=== PATIENT | female | born 1975 | race Caucasian/White ===

== ENCOUNTER 2020-04-06 09:00 | Outpatient (CLI) | payer SELFPAY ==
--- NOTE | ~2020-04-06 | MM_ITS ---
EXAMINATION: MM screening deisy BI w niki HISTORY: Screening mammogram TECHNIQUE: Craniocaudal and mediolateral oblique 3-D tomosynthesis images were obtained and synthetic 2-D images were generated. CAD analysis was submitted and interpreted. COMPARISON: No prior mammogram is available for comparison at this institution. BREAST PARENCHYMAL COMPOSITION: The breasts are heterogeneously dense, which may obscure small masses . FINDINGS: There is no evidence of suspicious mass, calcification, or architectural distortion to sugg est malignancy in either breast. There has been no suspicious interval change. IMPRESSION: 1. No mammographic evidence of malignancy. 2. Recommend routine screening mammography in one year. BI-RADS Category 1: Negative Reviewed, dictated and finalized at location A.
== END 2020-04-06 09:01 | disposition home or self-care (01) ==
PROVIDERS: PCP Obstetrics & Gynecology; Visit Provider Obstetrics & Gynecology
DX: Z12.31 Encounter for screening mammogram for malignant neoplasm of breast (principal)
CPT/HCPCS: 77063; 77067

== ENCOUNTER 2020-09-18 18:59 | Inpatient (IN) | payer SELFPAY ==
--- NOTE | ~2020-09-18 | US_ITS ---
EXAMINATION: US venous doppler UE RT DATE: 09/20/2020 11:40 INDICATION: Right upper limb swelling and erythema TECHNIQUE: Grayscale images without and with compression and Doppler images of the right upper extrem ity veins were obtained. COMPARISON: None. FINDINGS: The right internal jugular vein, subclavian vein, axillary vein, brachial vein, basilic vein, cephali c vein, radial vein, and ulnar vein are patent. IMPRESSION: 1. Patent right upper extremity veins. No evidence of venous thrombosis. Reviewed, dictated and finalized at location B.
[2020-09-18 19:00] VITALS: BP 123/54; PULSE 114; RESP 18; TEMP 36.6; O2SAT 100
--- NOTE | 2020-09-18 19:14 | ED.GENADULT ---
HPI - General Adult General Chief complaint: Extremity Injury, Upper Stated complaint: swollen hand Time Seen by Provider: 09/18/20 19:12 Source: patient Mode of arrival: ambulatory Limitations: no limitations History of Present Illness HPI narrative: 44 years old white female who woke up yesterday morning with swelling, redness and pain of the right forearm. Urgent care at 9 AM, discharged on Keflex. Today patient feeling more pain and more swelling, also vomited once after taking the first tablet of flex yesterday. Patient reports intermittent fever. Patient denies similar symptoms, or chills. Patient is nondiabetic, history of hypertension and hypothyroidism. 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 Patient does not smoke or drink or uses drugs. Related Data Home Medications Medication Instructions Recorded Confirmed norgestimate-ethinyl estradiol 1 tablet PO DAILY 12/14/19 09/18/20 0.18 mg/0.215mg/0.25mg-35 mcg(28)tablet Allergies Allergy/AdvReac Type Severity Reaction Status Date / Time No Known Allergies Allergy Verified 09/18/20 19:22 Review of Systems Review of Systems: Narrative: CONSTITUTIONAL: Denies fever, chills, or sweats. EYES: Denies visual changes, redness, or discharge. ENT: Denies rhinorrhea, congestion, sore throat, or otalgia. CARDIOVASCULAR: Denies chest pain, palpitations, or edema. RESPIRATORY: Denies cough or dyspnea. GASTROINTESTINAL: Denies abdominal pain, nausea, vomiting, or diarrhea. GENITOURINARY: Denies dysuria or hematuria. SKIN: Denies rash or itching. MUSCULOSKELETAL: Denies back pain, joint pain, or myalgia. NEUROLOGIC: Denies headache, numbness, or weakness. PSYCHIATRIC: Denies anxiety or depression. [facility] Past Medical History Medical History (Updated 09/18/20 @ 21:32 by Chu Wilkins MD) HTN (hypertension) with goal to be determined Hypothyroidism Family History Family History Mother Family history of thyroid disease Family history of malignant neoplasm of thyroid Grandparent Family history of thyroid disease Diabetes mellitus Family history of mental disorder Family history of lung disease Social History Social History Smoking status: Never smoker Alcohol intake: current Gender identity (if verbalized by the patient): Female Exam Narrative: Exam Narrative: General appearance: Well-developed, well-nourished Skin: Right forearm and hand showed diffuse swelling, erythema, warmth, tenderness anteriorly. Head: Normocephalic, nontraumatic Eyes: Clear conjunctiva Chest and respiratory: Airway patent, no respiratory distress, no accessory muscle use Heart: Regular rate/rhythm Vascular: Normal peripheral pulses, normal capillary refill. Musculoskeletal: Normal range of motion, nontender back Neurologic: Alert and oriented ?3, [facility] is normal as tested, no gross motor deficit Course Course Emergency Course: Stable Vital Signs Vital signs: Vital Signs Temperature 36.6 C 09/18/20 19:00 Pulse Rate 114 H 09/18/20 19:00 Respiratory Rate 18 09/18/20 19:00 Blood Pressure 123/54 L 09/18/20 19:00 Pulse Oximetry 100 09/18/20 19:00 Temperature 36.6 C 09/18/20 19:00 Pulse Rate 101 H 09/18/20 20:11 Respiratory Rate 19 09/18/20 20:11 Blood Pressure 131/74 09/18/20 20:11 Pulse Oximetry 99 09/18/20 20:11 Medical Decision Making MDM Narrative Medical decision making narrative: Patient presents with what looks like cellulitis of the right forearm. Patient is not diabetic. Labs, blood culture, I
[2020-09-18 19:46] LABS: Basophils Absolute Auto 0.1 K/mm3 (0.0-0.1); Basophils Percent Auto 0.2 % (0.2-1.2); Eosinophils Absolute Auto 0.1 K/mm3 (0-0.3); Eosinophils Percent Auto 0.3 % (0-4.4); Hematocrit 35.8 % (37.0-47.0); Hemoglobin 12.2 g/dL (12.0-15.0); Immature Granulocyte Absolute 0.21 K/mm3 (0.00-0.031); Immature Granulocyte Percent A 0.9 % (0-0.5); Lymphocytes Absolute Auto 1.56 K/mm3 (0.9-3.2); Lymphocytes Percent Auto 6.9 % (18.3-44.2); Mean Corpuscular HGB Conc 34.1 g/dl (32-36); Mean Corpuscular Hemoglobin 30.4 pg (26-34); Mean Corpuscular Volume 89.3 fl (80-100); Mean Platelet Volume 10.9 fl (7.4-10.4); Monocytes Absolute Auto 1.5 K/mm3 (0.1-0.6); Monocytes Percent Auto 6.6 % (2.6-8.5); Neutrophils Absolute Auto 19.2 K/mm3 (1.3-6.7); Neutrophils Percent Auto 85.1 % (45.5-73.1); Platelet Count Result 225 k/mm3 (150-375); Red Blood Count 4.01 M/mm3 (4.2-5.4); Red Cell Distribution Width 12.9 % (11.5-14.5); White Blood Count 22.6 K/mm3 (4.5-10.0)
[2020-09-18 19:57] LABS: Lactic Acid Reflex 1.2 mmol/L (0.7-2.1)
[2020-09-18 19:59] LABS: Alanine Aminotransferase 34 U/L (4-35); Albumin Level 3.6 g/dL (3.5-5.1); Alkaline Phosphatase 173 U/L (38-126); Anion Gap 8 mmol/L (8-16); Aspartate Amino Transferase 36 U/L (14-36); Bilirubin,Total 0.3 mg/dL (0.2-1.3); Blood Urea Nitrogen 19 mg/dL (7-17); Carbon Dioxide 23 mmol/L (22-30); Chloride 106 mmol/L (98-107); Estimated Glomerular Filt Rate > 60; Glucose 223 mg/dL (65-105); Potassium 3.8 mmol/L (3.4-5.0); Sodium 137 mmol/L (137-145)
[2020-09-18 20:11] VITALS: BP 131/74; PULSE 101; RESP 19; O2SAT 99
--- NOTE | 2020-09-18 21:24 | PM.IMHP ---
H&P: HPI History of Present Illness Date/Time: 09/18/20 21:24 Chief complaint: rt forearm cellulitis, new DM Narrative: This is a pleasant 44 year old female with known HTN and hypothyroidism who presented to the hospital with a complaint of right hand and forearm redness for the past 2 days. The patient reports that she got a small cut on her right middle finger and that is where the infection started as her middle finger is more swollen than the other fingers. She can barely close her right hand. She was seen yesterday at Urgent care for this and was prescribed Keflex. She experienced nausea and vomited after her first dose of Keflex although she states she has been taking the medication as prescribed. She woke up today with worse redness, swelling, and pain. She decided to come to the hospital for evaluation. She denies any fevers, chills, cough, chest pain, shortness of breath, abdominal pain, left upper extremity trauma, dysuria, diarrhea, or other wounds or rashes. The patient was found to be septic in the ER with tachycardia and leukocytosis. She was treated with IV vancomycin and we have been asked to admit her for further care. She is not known to be diabetic. 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 Hypothyroidism Family History Family History Mother Family history of thyroid disease Family history of malignant neoplasm of thyroid Grandparent Family history of thyroid disease Diabetes mellitus Family history of mental disorder Family history of lung disease Social History Social History Smoking status: Never smoker Alcohol intake: never Substance use: never Gender identity (if verbalized by the patient): Female Spiritual care concerns: No Comments Surgical history is remarkable for correction of Coarctation of aorta Meds Home Medications and Allergies Home Medications Medication Instructions Recorded Confirmed Type norgestimate-ethinyl estradiol 1 tablet PO DAILY 12/14/19 09/18/20 History 0.18 mg/0.215mg/0.25mg-35 mcg(28)tablet levothyroxine 137 mcg tablet 137 mcg PO DAILY #90 tablet 12/18/19 09/18/20 Rx lisinopril 20 mg tablet 20 mg PO BID #180 tablet 12/18/19 09/18/20 Rx verapamil 240 mg tablet,extended 120 mg PO DAILY #90 tablet 12/18/19 09/18/20 Rx release Allergies Allergy/AdvReac Type Severity Reaction Status Date / Time No Known Allergies Allergy Verified 09/18/20 19:22 Vital Signs Vital Signs - 24 hr 09/18/20 19:00 09/18/20 20:11 Temperature 36.6 C Pulse Rate 114 H 101 H Respiratory Rate 18 19 Blood Pressure 123/54 L 131/74 Pulse Oximetry 100 99 Exam Const: General: cooperative, alert and awake Nutritional Appearance: overweight Orientation/consciousness: patient oriented x3 HENMT: Head: normal to inspection General nose exam: Normal external nose present Face and sinus: normal facial exam Mouth: Yes Normal oral and palatal mucosa present and Yes oropharynx normal Eyes: Pupils: Equal, round and reactive pupils present EOM: EOMs intact bilaterally Neck: Neck: supple and no JVD Thyroid: thyroid normal Lymphatic: lymphadenopathy not noted Resp: Effort & Inspection: normal respiratory effort Auscultation: clear to auscultation bilaterally Cardio: Rate: tachycardic Rhythm: regular rhythm Heart sounds: no murmurs GI: Inspection: normal to inspection Auscultation: normal bowel sounds Skin: General skin exam: normal color and erythema (ventral aspect of right forarm and right hand++ ) Neuro: General: patient oriented x3 Cranial nerves:
[2020-09-18 22:16] LABS: Hemoglobin A1C 5.1 % (<5.7)
[2020-09-18 22:26] VITALS: BP 124/89; PULSE 108; RESP 18; O2SAT 99
[2020-09-18 22:35] VITALS: BMI 30.9
[2020-09-18] MEDS: SODIUM CHLORIDE 0.9% IV 1,000 ML 125 ML IV CONT (23:11)
[2020-09-18 23:23] VITALS: BP 146/74; PULSE 97; RESP 21; TEMP 36.2; O2SAT 100
--- NOTE | 2020-09-19 02:52 | ADMGEN ---
This patient, Lainey Lopez, was admitted to 2 Medical Room 257-01. Patient/family oriented to hospital policies and general routines including ID bracelet, bed and alarms, visiting hours, pain management, procedures, bathroom and other care routines, personal items, smoking policy, room service/diet, and visiting hours. Information on how to activate the Rapid Response Team has been discussed. Patient/Family are encouraged to report perceived risks to care and to ask questions if they do not understand what they are told or what they should do.
[2020-09-19 05:41] LABS: Basophils Percent Auto 0.2 % (0.2-1.2); Eosinophils Absolute Auto 0.1 K/mm3 (0-0.3); Eosinophils Percent Auto 0.3 % (0-4.4); Hematocrit 32.5 % (37.0-47.0); Hemoglobin 11.3 g/dL (12.0-15.0); Immature Granulocyte Absolute 0.21 K/mm3 (0.00-0.031); Immature Granulocyte Percent A 1.2 % (0-0.5); Lymphocytes Absolute Auto 0.93 K/mm3 (0.9-3.2); Lymphocytes Percent Auto 5.2 % (18.3-44.2); Mean Corpuscular HGB Conc 34.8 g/dl (32-36); Mean Corpuscular Hemoglobin 30.5 pg (26-34); Mean Corpuscular Volume 87.8 fl (80-100); Monocytes Absolute Auto 1.3 K/mm3 (0.1-0.6); Monocytes Percent Auto 7.4 % (2.6-8.5); Neutrophils Absolute Auto 15.2 K/mm3 (1.3-6.7); Neutrophils Percent Auto 85.7 % (45.5-73.1); Platelet Count Result 211 k/mm3 (150-375); White Blood Count 17.8 K/mm3 (4.5-10.0)
[2020-09-19 06:00] VITALS: BP 120/62; PULSE 95; RESP 21; TEMP 36.9; O2SAT 100
[2020-09-19 06:00] LABS: Anion Gap 7 mmol/L (8-16); Blood Urea Nitrogen 14 mg/dL (7-17); Calcium 10.6 mg/dL (8.4-10.2); Carbon Dioxide 22 mmol/L (22-30); Chloride 110 mmol/L (98-107); Estimated Glomerular Filt Rate > 60; Glucose 140 mg/dL (65-105); Potassium 3.8 mmol/L (3.4-5.0); Sodium 139 mmol/L (137-145)
[2020-09-19] MEDS: LEVOTHYROXINE SODIUM 112 MCG TABLET PO (06:39)
[2020-09-19] MEDS: LEVOTHYROXINE SODIUM 25 MCG TABLET PO (06:39)
[2020-09-19 07:44] LABS: Glucose Point of Care 127 (65-105)
[2020-09-19] MEDS: lisinopriL 20 MG TABLET PO ×2 (09:09→16:48)
[2020-09-19] MEDS: VERAPAMIL HCL ER 120 MG TABLET PO (09:09)
[2020-09-19 11:31] LABS: Glucose Point of Care 148 (65-105)
--- NOTE | 2020-09-19 13:15 | PM.IMPN ---
Progress Note: A&P Assessment and Plan (1) Sepsis: Code(s): A41.9 - Sepsis, unspecified organism Status: Acute Assessment and Plan: With tachycardia and leukocytosis. The source is cellulitis of the right upper extremity. She is afebrile. Blood cultures were obtained and are pending. She received adequate fluid resuscitation and is tolerating PO intake well. Continue to monitor vitals and urine output. Continue IV antibiotics. Await blood cultures. (2) Cellulitis of forearm, right: Code(s): L03.113 - Cellulitis of right upper limb Status: Acute Assessment and Plan: Improving. Leukocytosis is improving. Swelling and erythema have also improved. Continue IV vancomycin. Continue to monitor. Blood cultures were obtained and are pending. Consider additional imaging of the right hand if swelling does not improve. (3) Abnormal glucose: Code(s): R73.09 - Other abnormal glucose Status: Acute Assessment and Plan: Random blood sugar 09/18 was 223. Hemoglobin A1c was ordered and is 5.1%. (4) Hypothyroidism: Qualifiers: Hypothyroidism type: acquired Qualified Code(s): E03.9 - Hypothyroidism, unspecified Code(s): E03.9 - Hypothyroidism, unspecified Status: Chronic Assessment and Plan: Continue levothyroxine. Will check TSH w/reflex for tomorrow. (5) Essential hypertension: Code(s): I10 - Essential (primary) hypertension Status: Chronic Assessment and Plan: Blood pressures are well-controlled. Most recent BP was 116/64. Continue lisinopril and verapamil. Continue to monitor and adjust treatment as indicated. Subjective Date/time seen: 09/19/20 13:15 Mrs. Lopez is a 44 y.o. female with PMH significant for hypertension and hypothyroidism who is seen in follow-up for cellulitis of the LUE. She is feeling much better today. The swelling and erythema are improving. She reports that she could barely flex her fingers yesterday and can now make a fist. Her appetite is good. She notes that she had fevers on Saturday but has been afebrile since then. She denies headaches, dizziness, and lightheadedness. She hopes to go home soon although I explained that I still recommend IV antibiotics at this time. Her bowels are regular and she is not having any diarrhea. She has no voiding concerns. Review of Systems Review of Systems: All systems reviewed & are unremarkable except as noted in HPI and below Exam Narrative: Exam Narrative: General: Pleasant, well-developed, and well-nourished 44 y.o. female ambulating in the room in no acute distress. HEENT: Normocephalic and atraumatic. Sclerae anicteric. Conjunctivae without injection or exudate. EOMI. Corrective lenses in place. Oral mucosa moist. Neck: Supple. Cardiac: Regular rate and rhythm. S1 and S2 normal. Lungs:Lungs are clear to auscultation bilaterally. Abdomen: Bowel sounds are normoactive. Abdomen is soft, non-distended, and non-tender. Extremities: No lower extremity edema. No calf tenderness. DP and PT 2+ bilaterally. Right 3rd digit edema extending proximally from the DIP. Minimal edema to the rest of the hand. Pt is able to make a fist with minimal difficulty. Neurological: Alert. Exam non-focal to casual conversation. Speech is clear. Skin: Erythema present at the ventral RUE which extends from the right hand to just below the elbow. Area with calor to touch. No open wounds appreciated. No areas of fluctuance appreciated. Psychiatric: Judgment and insight intact. Pleasant mood and appropriate affect. Objective Data Vital Signs Vital Signs: Vital Signs - 24 hr 09/18/20 19:00 09/18/20 20:11 09/18/20 22:26 Temperature 97.9 F Pulse Rate 114 H 101 H 108 H Respiratory Rate 18 19 18 Blood Pressure 123/54 L 131/74 124/89 Pulse Oximetry 100 99 99 09/18/20 23:23 09/19/20 06:00 Temperature 97.2 F L 98.4 F Pulse Rate 97 95 Respiratory Rate 21 H
[2020-09-19 14:00] VITALS: BP 116/64; PULSE 95; RESP 16; TEMP 36.8; O2SAT 100
--- NOTE | 2020-09-19 14:43 | PHAR ---
Norgestimate-Ethinyl Estradiol [Tri-Sprintec (28)]- Home med seen in pharmacy and returned to [address] [place] [id number]
[2020-09-19 16:53] LABS: Glucose Point of Care 141 (65-105)
[2020-09-19 20:00] VITALS: PULSE 95; RESP 16; O2SAT 100
[2020-09-19 22:00] VITALS: BP 121/44; PULSE 83; RESP 20; TEMP 37.1; O2SAT 99
[2020-09-20 06:00] VITALS: BP 131/50; PULSE 88; RESP 21; TEMP 36.2; O2SAT 100
[2020-09-20] MEDS: LEVOTHYROXINE SODIUM 25 MCG TABLET PO (06:21)
[2020-09-20] MEDS: LEVOTHYROXINE SODIUM 112 MCG TABLET PO (06:21)
[2020-09-20 06:29] LABS: Basophils Percent Auto 0.3 % (0.2-1.2); Eosinophils Absolute Auto 0.3 K/mm3 (0-0.3); Eosinophils Percent Auto 2.3 % (0-4.4); Hematocrit 32.9 % (37.0-47.0); Hemoglobin 11.2 g/dL (12.0-15.0); Immature Granulocyte Absolute 0.12 K/mm3 (0.00-0.031); Immature Granulocyte Percent A 0.9 % (0-0.5); Lymphocytes Absolute Auto 1.58 K/mm3 (0.9-3.2); Lymphocytes Percent Auto 11.6 % (18.3-44.2); Mean Corpuscular Hemoglobin 30.1 pg (26-34); Mean Corpuscular Volume 88.4 fl (80-100); Mean Platelet Volume 10.8 fl (7.4-10.4); Monocytes Absolute Auto 1.1 K/mm3 (0.1-0.6); Monocytes Percent Auto 7.8 % (2.6-8.5); Neutrophils Absolute Auto 10.5 K/mm3 (1.3-6.7); Neutrophils Percent Auto 77.1 % (45.5-73.1); Platelet Count Result 211 k/mm3 (150-375); Red Blood Count 3.72 M/mm3 (4.2-5.4); White Blood Count 13.6 K/mm3 (4.5-10.0)
[2020-09-20 06:47] LABS: Alanine Aminotransferase 61 U/L (4-35); Albumin Level 2.9 g/dL (3.5-5.1); Alkaline Phosphatase 217 U/L (38-126); Anion Gap 4 mmol/L (8-16); Aspartate Amino Transferase 61 U/L (14-36); Bilirubin,Total 0.3 mg/dL (0.2-1.3); Blood Urea Nitrogen 14 mg/dL (7-17); Calcium 10.1 mg/dL (8.4-10.2); Carbon Dioxide 26 mmol/L (22-30); Chloride 106 mmol/L (98-107); Estimated Glomerular Filt Rate > 60; Glucose 131 mg/dL (65-105); Potassium 3.7 mmol/L (3.4-5.0); Sodium 136 mmol/L (137-145)
[2020-09-20] MEDS: VERAPAMIL HCL ER 120 MG TABLET PO (08:27)
[2020-09-20] MEDS: lisinopriL 20 MG TABLET PO (08:27)
[2020-09-20 08:31] LABS: CRP 16.5 mg/dL (<1.0)
[2020-09-20 14:00] VITALS: BP 125/64; PULSE 95; RESP 16; TEMP 36.7; O2SAT 100
--- NOTE | 2020-09-20 14:55 | PM.DS ---
DS: Admitting Diagnosis Admitting Diagnosis Admitting Diagnosis: rt forearm cellulitis, new DM DS: Discharge Diagnosis Discharge Diagnosis (1) Sepsis: Code(s): A41.9 - Sepsis, unspecified organism Status: Acute Assessment and Plan: Tachycardia resolved , HR regular and rate 80s. Leukocytosis is improving. 22.6 to 13.6. The source is cellulitis of the right upper extremity. She is afebrile. Blood cultures x 2 show no growth. received adequate fluid resuscitation and is now tolerating PO intake well. denies N/V/diarrhea or constipation. Treated with IV Vanc. Continue to monitor arm and fingers at home. Ordered CBC and CMP labs to be drawn as outpatient in 3 days after discharge per discharge instructions. (2) Cellulitis of forearm, right: Code(s): L03.113 - Cellulitis of right upper limb Status: Acute Assessment and Plan: Improving. Leukocytosis is improving. 22.6 to 13.6 Afebrile Swelling and erythema have also improved. Received 3 IV vancomycin doses, 1 in ER and 2 on floor. Instructed patient and her at bedside to continue to monitor at home. Blood cultures x 2 show no growth. US of RUE showed no DVT. She reports and demonstrated during examination, that she now has equal sensation and strength and flexion in all her fingers to that hand. Discharged on oral Doxycycline and oral Florastor. Follow up with PCP in 3-7 days. 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 ) PCP may return her to work sooner if improvement is quicker than expected. (3) Abnormal glucose: Code(s): R73.09 - Other abnormal glucose Status: Acute Assessment and Plan: Random blood sugar 09/18 was 223. Hemoglobin A1c was ordered and is 5.1%. Last 2 glucose levels were 140 and 131 (4) Hypothyroidism: Qualifiers: Hypothyroidism type: acquired Qualified Code(s): E03.9 - Hypothyroidism, unspecified Code(s): E03.9 - Hypothyroidism, unspecified Status: Chronic Assessment and Plan: Continue levothyroxine. (5) Essential hypertension: Code(s): I10 - Essential (primary) hypertension Status: Chronic Assessment and Plan: Blood pressures are well-controlled. Most recent BP was 131/50. Continue lisinopril and verapamil. Continue to monitor and adjust treatment as indicated. DS: Summary Time Spent with Patient Time attestation: Total time spent providing and/or coordinating discharge services:90 minutes Exam Narrative: Exam Narrative: General: Pleasant, well-developed, and well-nourished 44 y.o. female ambulating in the room in no acute distress. HEENT: Normocephalic and atraumatic. Sclerae anicteric. Conjunctivae without injection or exudate. EOMI. Corrective lenses in place. Oral mucosa moist. Neck: Supple. Cardiac: Regular rate and rhythm. S1 and S2 normal. Lungs:Lungs are clear to auscultation bilaterally. Abdomen: Bowel sounds are normoactive. Abdomen is soft, non-distended, and non-tender. Extremities: No lower extremity edema. No calf tenderness. Right 3rd digit edema extending proximally from the DIP. [place] and warm, redness resolved, extreme heat resolved. Minimal edema to the rest of the hand. Pt is able to make a fist with minimal difficulty. Some tightness remains. Not elevated. Neurological: Alert. Exam non-focal to casual conversation. Speech is clear. Skin: Erythema present at the ventral RUE which extends from the right hand to just below the elbow. Area with calor to touch. No open wounds appreciated. No areas of fluctuance appreciated. Psychiatric: Judgment and insight intact. Pleasant mood and appropriate affect. Const: General: cooperative, alert and awake Nutritional Appearance: overweight Orientation/consciousness: patient oriented x3 HENMT: Head: normal to inspection General nose exam: Normal external nose present Face and sinus: normal facial exam Mouth:
== END 2020-09-20 15:30 | disposition home or self-care (01) | DRG 720 ==
LOC: ANHED 21:28 → ANH2MED 09-19 07:17
PROVIDERS: Physician Assistant; Admitting Provider Family Medicine; Emergency Provider Emergency Medicine; Visit Provider Nurse Practitioner
DX: A41.9 Sepsis, unspecified organism (principal); L03.113 Cellulitis of right upper limb; R73.09 Other abnormal glucose; E03.9 Hypothyroidism, unspecified; I10 Essential (primary) hypertension; Z28.21 Immunization not carried out because of patient refusal; Z79.899 Other long term (current) drug therapy
CPT/HCPCS: 36415; 80048; 80053; 83036; 83605; 85025; 86140; 87040; 93971; 96365; 99285; A9270; J3370; J7030

== ENCOUNTER 2022-03-13 18:46 | Emergency (ER) | payer OTHER, SELFPAY ==
[2022-03-13 19:04] VITALS: BP 125/100; PULSE 78; RESP 16; TEMP 36.8; O2SAT 100
--- NOTE | 2022-03-13 19:21 | ED.LOWEXIN ---
HPI - Extremity Injury (Lower) General Chief Complaint: Extremity Injury, Lower Stated Complaint: R LEG PAIN Time Seen by Provider: 03/13/22 19:21 Source: patient Mode of arrival: ambulatory Limitations: no limitations History of Present Illness HPI Narrative: 46 y/o female presented for complaints of right upper inner thigh pain for 3 days. She states possible injury was lifting heavy tools at her job, endorses feeling tightness later that evening. States she was off of work for a couple days and the pain improved, but when she returned to work by the end of the shift she had more intense pain causing her to limp. Pain is also felt to inner thigh when seated. Denies numbness tingling or weakness, or pain radiating to foot.Taking ibuprofen prn. Related Data Home Medications Medication Instructions Recorded Confirmed norgestimate-ethinyl estradiol 1 tablet PO DAILY 12/14/19 06/16/21 0.18 mg/0.215mg/0.25mg-35 mcg(28)tablet Allergies Allergy/AdvReac Type Severity Reaction Status Date / Time No Known Allergies Allergy Verified 06/16/21 08:07 Review of Systems Review of Systems: CONSTITUTIONAL: Denies body aches, fever, chills EYES: Denies visual changes ENT: Denies rhinorrhea, congestion CARDIOVASCULAR: Denies chest pain, palpitations, or edema. RESPIRATORY: Denies cough or dyspnea. GASTROINTESTINAL: Denies abdominal pain, nausea, vomiting, or diarrhea. SKIN: Denies rash, itching, or wounds. MUSCULOSKELETAL: right inner thigh pain NEUROLOGIC: Denies headache, numbness, tingling, or weakness. PSYCH: Denies depression or anxiety. 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 Hypothyroidism Family History Family History Mother Family history of thyroid disease Family history of malignant neoplasm of thyroid Grandparent Family history of thyroid disease Diabetes mellitus Family history of mental disorder Family history of lung disease Social History Social History Smoking status: Never smoker Second hand tobacco smoke exposure: No Alcohol intake: never Substance use: never Gender identity (if verbalized by the patient): Female Spiritual care concerns: No Comments At time of signature, I have reviewed and agree with nursing past medical, surgical, social and family history unless otherwise noted. Please see nursing chart for further information. There is no relevant family history pertinent to the presenting complaint Exam Narrative: GENERAL: Well-appearing, well-nourished, and in no acute distress. HEAD: Normocephalic, atraumatic. EYES: PERRLA, conjunctivae clear NECK: Supple. CHEST: Speaks in full sentences. No respiratory distress. HEART: Regular rate and rhythm. Normal and equal peripheral pulses. EXTREMITIES: right inner thigh tender to palpation at iliofemoral junction, has normal strength and sensation, normal range of motion with flexion/extension/rotation, but endorses pain with movement. No edema or ecchymosis. No open wounds, skin tenting, or obvious deformity; alignment normal, pulse palpable and equal bilaterally, skin warm, dry, pink. Capillary refill less than 3 seconds. SKIN: Warm, dry, no rash. NEURO: Alert and oriented x3. PSYCH: Normal mood and affect Course Course Emergency Course: Patient is aware of diagnosis, understands and agrees to treatment plan. Anticipatory guidance given. Patient agrees to follow-up as directed and is aware of reasons to seek care at the emergency department. Portions of this record may have been created with voice recognition software Level of Care: [facility] Care Visit
== END 2022-03-13 19:41 | disposition home or self-care (01) ==
PROVIDERS: Emergency Provider Nurse Practitioner Family; PCP Internal Medicine
DX: M79.651 Pain in right thigh (principal); E03.9 Hypothyroidism, unspecified
CPT/HCPCS: 99213; G0463

== ENCOUNTER 2024-04-03 09:56 | Outpatient (CLI) | payer OTHER, SELFPAY ==
--- NOTE | ~2024-04-03 | CT_ITS ---
EXAMINATION: CTA chest DATE: 04/03/2024 10:32 INDICATION: Personal history of corrected coarctation of the aorta. Oseguera syndrome. TECHNIQUE: Computed tomographic angiography (CTA) of the chest was performed with 100 mL Omnipaque-35 0 intravenous contrast. Automated exposure control and iterative reconstruction technique were employ ed. The dose-length product was 335.35 mGy-cm. Maximum intensity projection 3D-reconstructions of the aorta and other arteries were constructed by the technologist on a separate workstation. COMPARISON: Thyroid ultrasound 11/22/2014 FINDINGS: The lungs demonstrate minimal atelectasis on the right. No pleural effusion. There are nodu les in the thyroid measuring up to 2.0 cm status post benign biopsy. The heart size is normal. No per icardial effusion. Aortic atherosclerosis is noted. The aorta is normal in caliber. 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 There is thoracic kyphosis. There is chronic anterior wedgi ng of multiple thoracic vertebral bodies. There is severe thoracic spondylosis. IMPRESSION: 1. Aortic atherosclerosis. No significant stenosis. Reviewed, dictated and finalized at location A.
[2024-04-03 10:15] LABS: Estimated Glomerular Filt Rate > 60
== END 2024-04-03 09:57 ==
PROVIDERS: PCP Family Medicine; Visit Provider Internal Medicine Cardiovascular Disease
DX: I70.0 Atherosclerosis of aorta (principal); Z87.74 Personal history of (corrected) congenital malformations of heart and circulatory system
CPT/HCPCS: 71275; Q9967

== ENCOUNTER 2024-08-28 14:02 | Outpatient (CLI) | payer SELFPAY ==
--- NOTE | ~2024-08-28 | US_ITS ---
EXAMINATION: US thyroid DATE: 08/28/2024 14:22 INDICATION: Multinodular goiter. TECHNIQUE: Multiple ultrasound images of the thyroid were obtained. COMPARISON: Ultrasound 11/22/2014 FINDINGS: The right thyroid lobe measures 4.2 x 2.3 x 1.9 cm. The left thyroid lobe measures 4.4 x 1.7 x 2.2 c m. In the right thyroid lobe, there is a 17 mm solid, hypoechoic, wider than tall nodule with ill-de fined margin and punctate echogenic focus (TI-RADS TR5), stable from 11/22/14. In the right thyroid l obe, there is a 2.1 cm mixed cystic and solid, hypoechoic, wider than tall nodule with ill-defined ma rgin without echogenic foci (TR3). In the left thyroid lobe, there is a 2.9 cm solid, hypoechoic, wid er than tall nodule with smooth margin and punctate echogenic foci (TR5), decreased in size from 10/26 08/08. IMPRESSION: 1. Multinodular goiter. Consider thyroid ultrasound in one year. Reviewed, dictated and finalized at location A.
== END 2024-08-28 14:03 | disposition home or self-care (01) ==
PROVIDERS: PCP Family Medicine; Visit Provider Internal Medicine
DX: E04.2 Nontoxic multinodular goiter (principal)
CPT/HCPCS: 76536

== ENCOUNTER 2025-01-15 12:49 | Outpatient (CLI) | payer OTHER, SELFPAY ==
--- NOTE | ~2025-01-15 | US_ITS ---
EXAMINATION: US FNA additional, US FNA w image guidance DATE: 01/15/2025 14:05 INDICATION: Right thyroid nodules TECHNIQUE: A time-out was performed to verify the patient's name, date of , and procedure to be performed . The procedure and its benefits and risks were discussed with the patient. Risks specifically discus sed included bleeding and infection. The patient understood the risks and agreed to proceed. The neck was prepped and draped in the usual sterile manner. 8 mL 1% lidocaine was used for local anesthesia . Attention was first turned to the more inferior right thyroid nodule. 7 passes were made with a 25 G needle into the lesion. Appropriate needle location was documented with continuous sonographic peng dance. Attention was then turned to the nodule in the mid right thyroid. 5 additional passes were mad e with a 20 5G needle into the lesion. Appropriate needle location was documented with continuous son ographic guidance. A sterile bandage was applied. There were no immediate complications. FINDINGS: Grayscale ultrasound images demonstrate biopsy needles advanced into the 1.7 cm TI-RADS 5 nodule at t he inferior right thyroid. Subsequent images demonstrate biopsy needles advanced into the solid hypoe choic component at the cephalad aspect of the previously noted 2.1 cm TI-RADS 3 mixed solid and cysti c nodule at the mid right thyroid. IMPRESSION: 1. Successful ultrasound-guided fine needle aspiration of a 1.7 cm TI-RADS 5 nodule at the inferior r ight thyroid. 2. Successful ultrasound-guided fine-needle aspiration of a 2.1 cm TI-RADS 3 mixed solid and cystic n odule at the mid right thyroid. Reviewed, dictated and finalized at location A. E SHOER IMPRESSION: 1. Successful ultrasound-guided fine needle aspiration of a 1.7 cm TI-RADS 5 no dule at the inferior right thyroid. 2. Successful ultrasound-guided fine-needle aspiration of a 2.1 cm TI-RADS 3 mi xed solid and cystic nodule at the mid right thyroid.
--- OUTSIDE RECORDS SUMMARY | 2025-01-15 12:57 | XMS_ITS | Clinical Summary ---
Author Organization [facility] Address [address] [place] [address] Phone Care Team Providers Care Barrel Assembler Name Role Phone Carole Rios Primary Care Provider [phone] Allergies No known active allergies Medications LISINOPRIL (PRINIVIL ORAL) Take by mouth. Active VERAPAMIL HCL (VERAPAMIL ORAL) Take by mouth. Active LEVOTHYROXINE SODIUM (SYNTHROID ORAL) Take by mouth. Active norgestimate-ethin yl estradiol (TRI-SPRINTEC, 28,) 0.18/0.215/0.25 mg-35 mcg (28) tabletIndications: Hormone replacement therapy,Encounter for surveillance of contraceptive pills Take 1 Tablet by mouth daily. 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 Family History Medical History Relation Name Comments Healthy Brother Healthy Father Thyroid Disease Maternal Grandmother Healthy Mother Relation Name Status Comments Brother Alive Father Alive Maternal Grandfather Maternal Grandmother Alive Mother Alive Paternal Grandfather Paternal Grandmother Social History Tobacco Use Types Packs/Day Years Used Date Smoking Tobacco: Never Smokeless Tobacco: Never Alcohol Use Standard Drinks/Week Comments No 0 (1 standard drink = 0.6 oz pur e alcohol) Comments No Sex and Gender Information Value Date Recorded Sex Assigned at Not on file Legal Sex Female 3:21 AM BEATER OUT Gender Identity Not on file Sexual Orientation Not on file Occupation Industry Job Start Date Job End Date Not on file Not on file Not on file Not on file Last Filed Vital Signs Vital Sign Reading Time Taken Comments Blood Pressure 130/50 10/05/2016 1:37 PM BEATER OUT Pulse 96 09/02/2015 1:35 PM CDT Temperature - - Respiratory Rate - - Oxygen Saturation - - Inhaled Oxygen Concentration - - Weight 53.1 kg (117 lb) 10/05/2016 1:37 PM BEATER OUT Height 138.4 cm (4' 6.5 ) 10/05/2016 1:37 PM BEATER OUT Body Mass Index 27.69 10/05/2016 1:37 PM BEATER OUT Plan of Treatment Health Maintenance Due Date Last Done Comments DTAP/TDAP/TD VACCINES (1 - Tdap) 1993 HEPATITIS B VACCINES (1 of 3 - 19+ 3-dose series) 1993 BREAST CANCER SCREENING 2014 CERVICAL CANCER SCREENING 10/05/20192015, 09/02/2015, 07/30/2014, Additional history exists COLORECTAL SCREENING 2019 Colorectal Cancer Screening 2019 FIT-DNA Q 3 years 2019 FIT/FOBT Q 1 year 2019 Flex Sig/CT Colonography Q 5 years 2019 INFLUENZA VACCINE (#1) 2024 ZOSTER VACCINE (1 of 2) 2024 PNEUMOCOCCAL VACCINE 0-64 YEARS Aged Out No longer eligible based on patient's age to complete this topic Procedures Procedure Name Priority Date/Time Associated Diagnosis Comments CERV/VAG CYTO SCREEN PAP W/O HPV Routine 10/05/2016 1:16 PM BEATER OUT Routine cervical smear Pap smear, low-risk from Last 3 Months or Most Recently Relevant to Health Maintenance Results * CERV/VAG CYTOPATH, THIN PREP CPO (CP) (10/05/2016 1:16 PM BEATER OUT) CLINICAL INFORMATION SEE COMMENT 10/10/2016 3:39 PM BEATER OUT [facility] Comment:Information not prov ided LAST MENSTRUAL PERIOD SEE COMMENT 10/10/2016 3:39 PM BEATER OUT [facility] Comment:Information not prov ided PREV PAP: SEE COMMENT 10/10/2016 3:39 PM BEATER OUT [facility] Comment:09/02/15 NIL PREV BX: SEE COMMENT 10/10/2016 3:39 PM BEATER OUT [facility] Comment:Information not prov ided SOURCE Endocervix 10/10/2016 3:39 PM BEATER OUT [facility] ADEQUACY: SEE COMMENT 10/10/2016 3:39 PM BEATER OUT [facility] Comment: Satisfactory for evaluation. Endocervical/transformation zone component absent. Age and/or menstrual status not provided PAP INTERP SEE COMMENT 10/10/2016 3:39 PM BEATER OUT [facility] Comment:Negative for intraep ithelial lesion or malignancy. COMMENT SEE COMMENT 10/10/2016 3:39 PM BEATER OUT [facility] Comment: This Pap test has been evaluated with computer assisted technology. APPEALS COORDINATOR: SEE COMMENT 2015 3:39 PM BEATER OUT [facility] Comment: TMK, CT(ASCP) CT screening location: [place] [address] Administration NAT[place] Rudolph [id number] Genital SWAB OF ENDOCERVIX / Unknown Collection / Unknown 10/05/2016 1:16 PM BEATER OUT 10/05/2016 5:16 PM BEATER OUT Narrative [facility] - 10/10/2016 3:39 PM BEATER OUT Performing Organization Information: Site ID: Name: [facility] Address: [facility] [place] [address] Director: Arcelia Zuluaga MD Silvio Echeverria MD PATHOLOGY/CYTOLOGY ORDERAB LES Final Result [facility] from Last 3 Months or Most Recently Relevant to Health Maintenance Insurance [place], [place] [id number] [place] [address] CHOICE [id number] Care Teams Barrel Assembler Relationship Specialty Start Date End Date Carole Rios PA PCP - General Physician Photographic Laboratory Supervisor 10/05/16
--- OUTSIDE RECORDS SUMMARY | 2025-01-15 12:57 | XMS_ITS | Patient Health Summary ---
Author Organization [facility] Address [address] [address] Care Team Providers Care Project Manager Interior Design Name Role Phone Carole Bustamante Primary Care Pr ovider Note from [facility],non-owned Affiliates and Associated Physician Practices is amultiple site organization consisting of ambulatory clinics and hospital sitesin [place], [place], [place] and [place]. This disclosure is being madepursuant to the Care Everywhere program and may not contain all information available regarding this patient. Last updated 18.[facility] Allergies No known active allergies Medications * Be aware that medications may not be up to date on this document. Alwaysverify current medications with the patient. * LISINOPRIL PO * levothyroxine (SYNTHROID) 137 MCG tablet Take 137 mcg by mouth daily before breakfast * verapamil SR 24hr (VERELAN) 240 MG capsule Take 240 mg by mouth once daily * norgestim-eth estrad triphasic (TRI-SPRINTEC) tablet Take 1 Tab by mouth once daily * azithromycin (ZITHROMAX) 250 MG tablet(Started 12/15/2016) Take 2 tabs today then 1 tab daily for 4 days * nksqgdtx-exuhiyszc-kq (CORTISPORIN) 3.5-76300-2 otic suspension(Started 12/15/2016) 4 Drops 4 times daily Active Problems No known active problems Social History Tobacco Use Types Packs/Day Years Used Date Smoking Tobacco: Never Sex and Gender Information Value Date Recorded Sex Assigned at Not on file Gender Identity Not on file Sexual Orientation Not on file Last Filed Vital Signs Vital Sign Reading Time Taken Comments Blood Pressure 136/72 12/15/2016 10:14 AM PAYER SPECIALIST Pulse 87 12/15/2016 10:14 AM PAYER SPECIALIST Temperature 36.8 C (98.2 F) 12/15/2016 10:14 AM PAYER SPECIALIST Respiratory Rate 16 12/15/2016 10:14 AM PAYER SPECIALIST Oxygen Saturation 98% 12/15/2016 10:14 AM PAYER SPECIALIST Inhaled Oxygen Concentration - - Weight 52.2 kg (115 lb) 12/15/2016 10:14 AM PAYER SPECIALIST Height 137.2 cm (4' 6 ) 12/15/2016 10:14 AM PAYER SPECIALIST Body Mass Index 27.73 12/15/2016 10:14 AM PAYER SPECIALIST Care Teams Project Manager Interior Design Relationship Specialty Start Date End Date Carole Bustamante PA [address] [place] [id number] PCP - General Physician Field Representative/Health Education 12/15/16
--- OUTSIDE RECORDS SUMMARY | 2025-01-15 12:57 | XMS_ITS | Clinical Summary ---
Author Organization [facility] Address [address] [place] [address] Care Team Providers Care Grave Cleaner Name Role Phone Chu Johnston MD Primary Care Provider [phone] Allergies No known active allergies Medications lisinopril (PRINIVIL) 20 MG tablet Take 1 tablet (20 mg total) by mouth 2 (two) times daily. Active verapamil (CALAN SR) 120 MG ER tablet Take 1 tablet (120 mg total) by mouth daily. Active ZAFEMY 150-35 MCG/24HR packet APPLY 1 PATCH TOPICALLY ONCE A WEEK FOR 21 DAYS Active levothyroxine (SYNTHROID) 137 MCG tablet TAKE 1 TABLET BY MOUTH IN THE MORNING FOR 90 DAYS Active Active Problems Problem Noted Date Diagnosed Date Splenic artery aneurysm 05/21/2024 Benign hypertension 05/20/2024 Blood glucose abnormal 05/20/2024 Maxillary sinusitis 05/20/2024 Hypothyroidism 05/20/2024 Hyperparathyroidism ([facility]) 01/24/2023 Oseguera syndrome ([facility]) 12/21/2011 Encounters Date Type Department Care Team Description 12/25/2024 Orders Only [facility] [address] [address] Colton Clark MD from Last 3 Months Immunizations Name Administration Dates Next Due Tdap (Generic) 08/06/2016 Family History Medical History Relation Comments HISTORY OF THYROID CANCER Mother Thyroid Disease Mother Relation Status Comments Mother Alive Social History Tobacco Use Types Packs/Day Years Used Date Smoking Tobacco: Never Smokeless Tobacco: Never Alcohol Use Standard Drinks/Week Comments Never 0 (1 standard drink = 0.6 oz pur e alcohol) Comments Unknown Sex and Gender Information Value Date Recorded Sex Assigned at Not on file Legal Sex Female 9:36 AM SITE HEAD Gender Identity Not on file Sexual Orientation Not on file Last Filed Vital Signs Vital Sign Reading Time Taken Comments Blood Pressure 140/80 05/20/2024 3:47 PM CDT Pulse 77 05/20/2024 3:47 PM CDT Temperature - - Respiratory Rate - - Oxygen Saturation - - Inhaled Oxygen Concentration - - Weight 54.4 kg (120 lb) 05/20/2024 3:47 PM CDT Height 132.1 cm (4' 4 ) 05/20/2024 3:47 PM CDT Body Mass Index 31.2 05/20/2024 3:47 PM CDT Plan of Treatment Upcoming Encounters Date Type Department Care Team (Late st Contact Info) Description 05/26/2025 1:45 AM CDT Office Visit [facility] [address] [place], [place] [id number] Colton Clark MD [facility]. [facility] [address] [place], [place] [id number] Health Maintenance Due Date Last Done Comments Colorectal Cancer Screening Colonoscopy (10 Years) 1974 Annual Physical 1977 Hepatitis C 1992 Hepatitis B Vaccines (1 of 3 - 19+ 3-dose series) 1993 Mammogram Screening 2014 Cervical Cancer Screening Pa p Smear (Age 30 to 64) Every 3 Years 10/05/2019 10/05/2016 Cervical Cancer Screening Pa p with HPV Testing (Age 30 to 64) Every 5 Years 10/05/2021 10/05/2016 Cervical Cancer Screening with HPV 10/05/2021 COVID-19 Vaccine (2023-2 5 season) 2024 Influenza Adult (#1) 2024 Zoster Vaccines (1 of 2) 2024 DTaP, Tdap and Td Vaccines ( 2 - Td or Tdap) 08/06/2026 08/06/2016 Meningococcal B Vaccine Aged Out No l onger eligible based on patient's age to complete this topic Meningococcal Vaccine Aged Out No henry valentino eligible based on patient's age to complete this topic Pneumococcal Vaccine: Pediat rics (0 to 5 Years) and At-Risk Patients (6 to 64 Years) Aged Out No longer eligi ble based on patient's age to complete this topic RSV Immunizations Under 20 Months Aged Out No longer eligible based on patient's age to complete this topic Insurance R Care Teams Grave Cleaner Relationship Specialty Start Date End Date Chu Johnston MD [address] [place] [address] PCP - General FAMILY MEDICINE SPORTS MEDICINE 12/12/22
--- OUTSIDE RECORDS SUMMARY | 2025-01-15 12:57 | XMS_ITS | Referral Summary ---
Author Organization [facility] [employer] Address [address] [place] [address] Care Team Providers Care Back Hanger Name Role Phone Carole Bustamante Primary Care Pr ovider Source Comments [facility] [employer],non-owned Affiliates and Associated Physician Practices is amultiple site organization consisting of ambulatory clinics and hospital sitesin [place], [place], [place] and [place]. This disclosure is being madepursuant to the Care Everywhere program and may not contain all information available regarding this patient. Last updated 18.[facility] [employer] Allergies No known active allergies Medications * Be aware that medications may not be up to date on this document. Alwaysverify current medications with the patient. Medication Sig Dispensed Refills Start Date End Date Status LISINOPRIL PO Active levothyroxine (SYNTHROID) 137 MCG tablet Take 137 mcg by mouth daily before breakfast Active verapamil SR 24hr (VERELAN) 240 MG capsule Take 240 mg by mouth once daily Active norgestim-eth estrad triphasic (TRI-SPRINTEC) tablet Take 1 Tab by mouth once daily Active azithromycin (ZITHROMAX) 250 MG tabletIndications:Acu te serous otitis media of left ear, recurrence not specified Take 2 tabs today then 1 tab daily for 4 days 6 Tab 12/15/2016 Active zilypeli-yockvuqjv-og (CORTISPORIN) 3.5-06703-1 otic suspension 4 Drops 4 times daily 10 mL 12/15/2016 Active Active Problems No known active problems Social History Tobacco Use Types Packs/Day Years Used Date Smoking Tobacco: Never Sex and Gender Information Value Date Recorded Sex Assigned at Not on file Gender Identity Not on file Sexual Orientation Not on file Last Filed Vital Signs Vital Sign Reading Time Taken Comments Blood Pressure 136/72 12/15/2016 10:14 AM MACHINERY MOVER Pulse 87 12/15/2016 10:14 AM MACHINERY MOVER Temperature 36.8 C (98.2 F) 12/15/2016 10:14 AM MACHINERY MOVER Respiratory Rate 16 12/15/2016 10:14 AM MACHINERY MOVER Oxygen Saturation 98% 12/15/2016 10:14 AM MACHINERY MOVER Inhaled Oxygen Concentration - - Weight 52.2 kg (115 lb) 12/15/2016 10:14 AM MACHINERY MOVER Height 137.2 cm (4' 6 ) 12/15/2016 10:14 AM MACHINERY MOVER Body Mass Index 27.73 12/15/2016 10:14 AM MACHINERY MOVER Plan of Treatment Not on file Care Teams Back Hanger Relationship Specialty Start Date End Date Carole Bustamante PA [address] [place] [address] PCP - General Physician Culinary Assistant 12/15/16
--- OUTSIDE RECORDS SUMMARY | 2025-01-15 12:57 | XMS_ITS | Data Portability ---
Author Organization [facility] [employer], Main Office Address [address] [place] [address] Assessment No assessment recorded. Plan of Treatment Reminders Order Date Submit Date Provider Last Modified By Organization Details Last Modified Time Details Appointments None recorded. Lab vitamin D, 25-hydroxy, total, serum 2022 023 [facility], [address] [place] [address], [address], 3 11:36:09 CMP, serum or plasma 2022 023 [facility], [address] [place] [address], [address], 3 16:35:34 phosphorus, serum or plasma 2022 023 [facility], [address] [place] [address], [address], 3 16:35:33 PTH (parathyroi d hormone), intact + calcium, serum or plasma 2022 023 [facility], [address] [place] [address] 2, [place], [address], 3 16:35:33 TSH + free T4, serum 2022 023 [facility], [address] [facility] [address], [place], [address], 3 16:35:18 thyroid peroxidase (tpo) Ab, serum 2022 023 [facility], [address] [facility] [address], [place], [address], 3 16:35:18 T3, free, serum or plasma 2022 023 [facility], [address] [facility] [address], [place], [address], 3 16:35:34 Referral None recorded. Procedures None recorded. Surgeries None recorded. Imaging SPECT-CT, parathyroid 2022 023 [facility] [place] (Imaging), [address] [place], [address], 3 15:16:44 Medication Orders None recorded. Patient TargetsNo targets recorded. Patient InstructionsNo instructions recorded. Reason for Referral None Reported. Results Created Date Observation Date Name Description Value Unit Range Abnormal Flag Note LastModifiedBy Organization Detail LastModifiedTime 02/02/20 23 DEXA, axial skele ton No observ ation record ed. [email or web address] Not Available 2022 12:15:25 Result Notes None recorded. Problems Name Problem SNOMED Code Status Onset Date Resolution Date Notes Provider Name and Address Organization Details Recorded Time Benign hypertension 03856964 Active Not Available [facility] 10:46:50 Blood glucose outside reference range 397517470 Active Not Available [facility] 10:46:50 Thyroid nodule 909555843 Active Not Available [facility] 3 10:46:50 Hypothyroidis m 97226069 Active Not Available [facility] 3 10:46:50 Maxillary sinusitis 14290464 Active Not Available [facility] 10:46:50 Hyperparathyr oidism 08939317 Active 2022 Liliya Conklin MD [address] [facility], [facility] [address], [place], [address] , [facility] 16:33:01 Problem Notes None recorded. Procedures Surgical History None recorded. Imaging Results Imaging Date Name Status LastModified by Organiz ation Details LastModified Time 02/01/2023 DEXA, axial skeleton completed [email or web address] Information not available 02/07/2023 12:15:25 Procedure Notes None recorded. Medical Equipment None Reported. Allergies No known drug allergies Medications Name Sig Start Date Stop Date Status Note LastModified by Organization Details LastModified Time verapamil ER (SR) 120 mg tablet,ex tended release TAKE 1 TABLET BY MOUTH ONCE DAILY active Not Available Not Available No t Available levothyro xine 137 mcg tablet TAKE 1 TABLET BY MOUTH IN THE MORNING FOR 90 DAYS active Not Available Not Available No t Available azithromy chris 250 mg tablet TAKE 2 TABLETS ON DAY 1 THEN 1 TABLET DAILY THEREAFT ER TILL ALL TAKEN active Not Available Not Available No t Available lisinopri l 20 mg tablet TAKE 1 TABLET BY MOUTH TWICE DAILY active Not Available Not Available No t Available alendrona te 70 mg tablet TAKE 1 TABLET BY MOUTH ONCE A WEEK active Not Available Not Available No t Available Tubersol 5 tub. unit/0.1 mL intraderm al injection solution Take 0.1 mL as needed by intrader mal route as directed . 10/14 completed Internal note: [facility] [id number] ernal note: 03/22/17 result = Negative Not Available Not Available Not Available verapamil 120 mg tablet TAKE 1 TABLET BY MOUTH ONCE DAILY FOR 90 DAYS 01/25 completed Not Available Not Available Not Available amoxicill in 875 mg tablet Take 1 tablet every 12 hours by oral route. 12/16 completed Not Available Not Available Not Available verapamil ER (SR) 240 mg tablet,ex tended release TAKE 1/2 (ONE-TAO F) TABLET BY MOUTH ONCE DAILY 01/25 completed Not Available Not Available Not Available cyclobenz aprine 5 mg tablet TAKE 1 TO 2 TABLETS BY MOUTH THREE TIMES DAILY NEEDED FOR MUSCLE SPASM 01/25 completed Not Available Not Available Not Available Tri-Sprin beka (28) 0.18 mg(7)/0.2 15 mg(7)/0.2 5 mg(7)-35 mcg tablet TAKE ONE TABLET DAILY 01/25 completed Not Available Not Available Not Available nitrofura ntoin monohydra te/macroc rystals 100 mg capsule TAKE 1 CAPSULE BY MOUTH TWICE DAILY FOR 5 DAYS 01/25 completed Not Available Not Available Not Available verapamil takes 1/2 tab daily. 06/24 completed Not Available Not Available Not Available Tri-Sprin beka (28) one tab po daily 10/14 completed Not Available Not Available Not Available Zafemy 150 mcg-35 mcg/24 hr transderm al patch APPLY 1 PATCH TOPICALL Y ONCE A WEEK FOR 21 DAYS active Not Available Not Available No t Available BinaxNOW COVID-19 Ag Self Test kit Use as Directed on the Package 01/25 completed Not Available Not Available Not Available Vitals Date Recorded Body weight Body height Body mass index (BMI) Heart rate Body temperature Systolic blood pressure Diastolic blood pressure Provider Name and Address Organization Details Last Updated DateTime 3 [address]4820.3 g 134.62 cm 30.9 kg/m2 88 /min 97.8 [degF] 126 mm[Hg] 76 mm[Hg] Ashely Garcia CMA [facility] 16:08:10 Social History Question Answer Notes LastModified by Organizat ion Details LastModified Time Tobacco Smoking Status Never Smoker Ashely Garcia CMA null, [facility] 01/25/2023 16:13:50 What Is Your Level Of Alcohol Consumption? None [email or web address] Information not available 01/25/2023 What Is Your Occupation? Other [id number] Information not available 01/23/2023 Sex: Unknown Functional Status None recorded. Mental Status None recorded. Family History Nothing Reported. Medical History Condition Response HYPERTENSION Y HYPOTHYROIDISM Y Gynecological HistoryNo gynecological history recorded. Obstetrics History GPAL:G 0 P 0 0 0 0 Immunizations Vaccine Type Date Status Note Provider Nam e and Address Organization Details Recorded Time Tdap 08/06/2016 completed Not Available [facility] 01/23/2023 10:52:14 Past Encounters Encounter ID Performer Location Encounter Start Date Encounter Closed Date Diagnosis/Indication Diagnosis SNOMED-CT Code Diagnosis ICD10 Code Diagnosis Note [id number] Liliya Conklin MD [facility] [address] [place] [address] 01/25/2023 15:55:57 01/25/2023 16:57:37 Hyperparathyroidism 39330495 E21.3 Will send for full parathyroi d panel. I need a copy of her bone density and her thyroid u/s. Patient is not taking any additional sources of calcium such as tums or rolaids or calcium containing antacids and was encouraged to abstain from these supplement s. If urinary calcium is markedly elevated with calcium to creatinine clearance of >0.01 then very consistent with primary hyperparat hyroidism however if calcium to creatinine clearance is <0.01 then more consistent with benign condition known as familial hypercalce sterling hypocalciu mariaelena. Patient is not wishing to undergo aggressive measures for management of parathyroi d disease however discussed with patient if her serum calcium is increasing to above 11 to 11.5 mg/dL or higher and she has evidence of severe bone loss especially at cortical bone site (T score of -2.5 or worse) these are indicators she is a surgical candidate and guidelines do recommend parathyroi dectomy in these cases. Per mother and patient she does have early osteoporos is- would recommend we send patient for SPECT-CT of parathyroi d to see if any of her nodules may be consistent with parathyroi d adenomas. Thyroid nodule 811754350 E04.1 Need to assess her imaging- will have her sign KASSIDY to assess need for patient to undergo u/s guided FNA. Send for full thyroid panel to assess endogenous thyroid function. She is on LT4 137 mcg daily. She was reminded to take her LT4 on empty stomach with glass of water and wait one hour to eat or have her coffee in morning and up to 4 hours if ever taking any heartburn or reflux medication s to help optimize absorption . Discussed paleo like diet with restrictio n of GMOs to help with energy and to optimize absorption of vitamins and minerals and reduce inflammati on. Spent up to 45 minutes preparing to see the patient (eg, review of tests), obtaining and/or reviewing separately obtained history, performing a medically appropriat e examinatio n and evaluation , counseling and educating the patient, ordering medication s, tests, along with documentin g clinical informatio n in the electronic health record, independen tly interpreti ng results and communicat ing results to the patient. RTC in 2-3 months. Patient was provided a handwritte n lab order which contains our fax number. If she chooses to go outside of the [facility] system to obtain labwork she was advised to provide our fax number and my informatio n to the lab she will be obtaining labwork from in order to have her labs properly forwarded over for me to review so there is no loss of follow up due to use of outside network. She was also advised to contact our clinic informing us that she has completed her labwork so we are aware we will need to reach out to the appropriat e laboratory to request her results be forwarded to us so I might have the ability to review and make further medical decision making in her case. She voiced understand ing. Thank you for this consultati on. Health Concerns Section Related Observation LastModified by Organization Detai ls LastModified Time None Recorded Concern Status LastModified by Organization Details LastModified Time None Recorded Advance Directives Directive None Recorded Payers Encounter Date Sequence Insurance Name Policy Number Policy Kowalski Covered Member ID Kowalski Member ID Guarantor Name 01/25/2023 1 [facility] [id number] Lainey Lopez [id number] Lainey Lopez Notes Date Note Type Note Provider Name and Address Organization Details Recorded Time 3 text/html 47 yo female comes in as referral for management of parathyroid ds in setting of multinodular goiter. About 10 years ago her PCP sent her for a thyroid u/s and she was found to have three nodules and one was borderline-this was biopsied and everything came back benign in nature. This was 10 years ago. She also had finding of hyperparathyroidism as she had a high calcium level in the past but does vary. She has no hx of broken bones or kidney stones. He mother has hx of thyroid cancer. Patient recently had a thyroid ultrasound that found a 4th nodule. She has hx of Turners syndrome- she went to endocrinology clinic at [facility]- with graves dx at 15 years and had LEE ablation therapy and on replacement since that time. Her nodules popped up about 10 years ago. She had a thyroid u/s done last month. There was nothing new per patient. She is taking LT4 137 mcg daily- she takes by itself and waits close to 1 hour before eating. labs from 11/15:a1c 5.7%179/69/60/105calcium 10.7 mg/dLPTH 60 pg/mlvit D 34.6 ng/ml24 hour urine calcium 116 mg/24 hour Liliya Conklin MD [address], [place], [address], [place] [facility] [place] [facility] 01/25/2023 21:55:25 OBGyn Episode No OBEpisode recorded.
--- OUTSIDE RECORDS SUMMARY | 2025-01-15 12:57 | XMS_ITS | Clinical Summary ---
Author Organization [facility] Address [address] [place] [address] Care Team Providers Care Investment Banking Associate Name Role Phone Carole Bustamante Primary Care Pr ovider Source Comments [facility],non-owned Affiliates and Associated Physician Practices is amultiple site organization consisting of ambulatory clinics and hospital sitesin [place], [place], [place] and [place]. This disclosure is being madepursuant to the Care Everywhere program and may not contain all information available regarding this patient. Last updated 18.[facility] Allergies No known active allergies Medications * [...] for 4 days 6 Tab 12/15/2016 Active ailvsufj-yupfrigtk-ld (CORTISPORIN) 3.5-29614-6 otic suspension 4 Drops 4 times daily [...] Comments Blood Pressure 136/72 12/15/2016 10:14 AM [employer] Pulse 87 12/15/2016 10:14 AM [employer] Temperature 36.8 C (98.2 F) 12/15/2016 10:14 AM [employer] Respiratory Rate 16 12/15/2016 10:14 AM [employer] Oxygen Saturation 98% 12/15/2016 10:14 AM [employer] Inhaled Oxygen Concentration - - Weight 52.2 kg (115 lb) 12/15/2016 10:14 AM [employer] Height 137.2 cm (4' 6 ) 12/15/2016 10:14 AM [employer] Body Mass Index 27.73 12/15/2016 10:14 AM [employer] Plan of Treatment Health Maintenance Due Date Last Done Comments COLOGUARD (AGES 45-75) - COL ON CA SCREENING 1974 COLON MONITORING 1974 COLONOSCOPY - COLON CA SCREENING 1974 CT COLONOGRAPHY - COLON CA SCREENING 1974 Colorectal Cancer Screening 1974 FIT - COLON CA SCREENING 1974 FLEX SIG - COLON CA SCREENING 1974 LIPID TESTING 1974 MAMMOGRAM 1974 PAP SMEAR 1974 HIV SCREENING 1989 HEPATITIS C SCREENING 10/02/1992 DTAP/TDAP/TD VACCINES (1 - Tdap) 1993 HEPATITIS B VACCINE (1 of 3 - 19+ 3-dose series) 1993 COVID-19 VACCINE ( - 2023-2 5 season) 2024 INFLUENZA VACCINE (#1) 2024 PNEUMOCOCCAL VACCINE 50+ (1 of 1 - PCV) 2024 ZOSTER VACCINE (1 of 2) 2024 DEPRESSION SCREENING 11/25/2024 HIB VACCINE Aged Out No longer eligi ble based on patient's age to complete this topic HPV VACCINE Aged Out No longer eligi ble based on patient's age to complete this topic MENINGOCOCCAL (Group B) VACCINE Aged Out No longer eligible based on patient's age to complete this topic MENINGOCOCCAL VACCINE Aged Out No henry valentino eligible based on patient's age to complete this topic PNEUMOCOCCAL VACCINE Aged Out No long er eligible based on patient's age to complete this topic Care Teams Investment Banking Associate Relationship Specialty Start Date End Date Carole Bustamante PA [address] [place] [address] PCP - General Physician Bonbon Dipper 12/15/16
== END 2025-01-15 12:50 | disposition home or self-care (01) ==
LOC: ANHIMG 12:55
PROVIDERS: PCP Family Medicine; Visit Provider Internal Medicine
DX: E04.2 Nontoxic multinodular goiter (principal)
CPT/HCPCS: 10005; 10006; 88172; 88173; 88305

== ENCOUNTER 2025-03-12 10:21 | Outpatient (CLI) | payer OTHER, SELFPAY ==
--- NOTE | ~2025-03-12 | MM_ITS ---
EXAMINATION: MM screening deisy BI w niki HISTORY: Screening TECHNIQUE: Craniocaudal and mediolateral oblique 3-D tomosynthesis images were obtained and synthetic 2-D images were generated. CAD analysis was submitted and interpreted. COMPARISON: 04/06/2020 BREAST PARENCHYMAL COMPOSITION: Not dense: There are scattered areas of fibroglandular density. FINDINGS: There is no evidence of suspicious mass, calcification, or architectural distortion to sugg est malignancy in either breast. There has been no suspicious interval change. IMPRESSION: 1. No mammographic evidence of malignancy. 2. Recommend routine screening mammography in one year. BI-RADS Category 1: Negative Reviewed, dictated and finalized at location B.
== END 2025-03-12 10:22 | disposition home or self-care (01) ==
LOC: MICIMG 10:22
PROVIDERS: PCP Family Medicine; Visit Provider Obstetrics & Gynecology
DX: Z12.31 Encounter for screening mammogram for malignant neoplasm of breast (principal)
CPT/HCPCS: 77063; 77067

== ENCOUNTER 2025-05-14 14:34 | Outpatient (CLI) | payer OTHER, SELFPAY ==
--- NOTE | ~2025-05-14 | CT_ITS ---
CT of the Abdomen and Pelvis: Indication: Splenic artery aneurysm Technique: 2.5 mm axial scans were obtained through the abdomen and pelvis following intravenous adm inistration of 100 cc of Omnipaque 350. Dose reduction technique was used on this scan by utilizing a utomated exposure control and iterative reconstruction technique. The dose-length product (DLP) was 4 91.58 mGy-cm. Findings: Scans through the lung bases are unremarkable. The liver, spleen, pancreas, gallbladder, adrenals and kidneys are within normal limits. No evidence of aortic aneurysm. Splenic artery aneurysm measures 1.6 x 1.3 cm (axial image 30). No lymphadenopat hy. There is wall thickening of the sigmoid colon with minimal adjacent inflammatory stranding. No absces s or free air. No bowel obstruction. Images through the pelvis were performed. Urinary bladder unremarkable. No adnexal mass evident. No a scites. Impression: 1.6 x 1.3 cm splenic artery aneurysm, as detailed above. Wall thickening and mild inflammatory change involving the sigmoid colon. Findings are compatible wit h infectious/inflammatory colitis versus diverticulitis. No abscess or free air. Neoplasm felt to be less likely. Reviewed, dictated and finalized at location . Impression: 1.6 x 1.3 cm splenic artery aneurysm, as detailed above. Wall thickening and mild inflammatory change involving the sigmoid colon. Findi ngs are compatible with infectious/inflammatory colitis versus diverticulitis. No abscess or free air. Neoplasm felt to be less likely.
[2025-05-14 14:59] LABS: Estimated Glomerular Filt Rate > 60
== END 2025-05-14 14:35 | disposition home or self-care (01) ==
PROVIDERS: PCP Family Medicine; Visit Provider Surgery Vascular Surgery
DX: I72.8 Aneurysm of other specified arteries (principal); K63.89 Other specified diseases of intestine
CPT/HCPCS: 74174; Q9967

== ENCOUNTER 2025-05-21 14:35 | Outpatient (CLI) | payer OTHER, SELFPAY ==
--- NOTE | ~2025-05-21 | DEXA_ITS ---
Bone Density Report Name: JOSH WISE Age: 49 Sex: Female Ethnicity: White Date of : 1975 Indication: postmenopausal; screening for osteoporosis; height loss; Referring Provider: GARRET GUERRERO Study: Bone densitometry was performed. Exam Date: May 21, 2025 Accession number: [id number] Bone Density: Region BMD T-score Z-score Classification AP Spine(L1-L4) 0.951 -0.9 -0.1 Normal Femoral Neck (Left) 0.567 -2.5 -1.8 Osteoporosis Total Hip (Left) 0.759 -1.5 -1.0 Osteopenia Femoral Neck (Right) 0.531 -2.9 -2.1 Osteoporosis Total Hip (Right) 0.673 -2.2 -1.7 Osteopenia Total Hip Mean 0.716 -1.9 -1.4 Osteopenia World Health Organization criteria for BMD impression classify patients as: Normal (T-score at or above -1.0), Osteopenia (T-score between -1.0 and -2.5), or Osteoporosis (T-score at or below -2.5). 10-year Fracture Risk: FRAX not reported because: Some T-score for Spine Total or Hip Total or Femoral Neck at or below -2.5 Clinical Information Provided by Patient: Has used the following medications: HRT (i.e. estrogen/hormone therapy), Vitamin D Patient maximum height was 55 Drinks caffeinated beverages Onset of menses at age 17 Number of children 0 Impression: The patient has osteoporosis, based on the Right Femoral Neck T-score. Discussion: HIGH RISK OF FRACTURE. BONE DENSITY IS UNDESIRABLY LOW AT ONE OR MORE SKELETAL SITES, CONSISTENT WITH OSTEOPOROSIS. ALSO, BONE DENSITY IS LOWER THAN EXPECTED FOR AGE AND SEX AT ONE OR MORE SKELETAL SITES; RECOMMEND A DILIGENT SEARCH FOR SECONDARY CAUSES OF BONE LOSS. This patient's lowest T-score meets the World Health Organization's (WHO) criteria for osteoporosis at one or more sites (T-score -2.5 or below). In untreated patients, the risk of osteoporotic fracture increases approximately two-fold for each 1.0 SD decrease in T-score. Low bone density is not the only risk factor for fracture; also consider factors such as patient's age, frailty or poor health, risk of falling, risk of injury, previous osteoporotic fracture, family history of osteoporosis, cigarette smoking, low body weight, etc. Not everyone with low bone mineral density has osteoporosis; osteomalacia and other metabolic bone disorders should also be considered. Patients who have osteoporosis should be evaluated for specific diseases and conditions (secondary causes) that may cause or contribute to bone loss. The [place] Association of Clinical Endocrinologists (AACE) and National Osteoporosis Foundation (NOF) recommend pharmacologic intervention for all postmenopausal women whose T-score is in this range. Also, this patient's bone mineral density is below the range considered normal for healthy age-, sex-, and race-matched controls at least one site (Z-score -2.0 or below). This warrants careful evaluation for diseases and conditions that may contribute to accelerated bone loss. The patient should follow a healthful lifestyle (good nutrition with adequate calcium and vitamin D, and appropriate weight-bearing exercise). Follow-Up: Consider a repeat BMD and Vertebral Fracture Assessment (VFA) exam in 2 years or sooner if medically necessary, to reassess this patient's status. Reported by: CANDIDO on 05/21/2025 3:00:00 PM. Reviewed, dictated and finalized at location A.
== END 2025-05-21 14:36 | disposition home or self-care (01) ==
LOC: MICIMG 14:35
PROVIDERS: PCP Family Medicine; Visit Provider Obstetrics & Gynecology
DX: M81.0 Age-related osteoporosis without current pathological fracture (principal); M85.89 Other specified disorders of bone density and structure, multiple sites; Z13.820 Encounter for screening for osteoporosis
CPT/HCPCS: 77080

== ENCOUNTER 2025-09-09 12:05 | Emergency (ER) | payer OTHER, SELFPAY ==
--- NOTE | ~2025-09-09 | XR_ITS ---
EXAMINATION: XR hand RT min 3V, 09/09/2025 12:37 CDT HISTORY: pain and swelling fall today COMPARISON: No comparisons available. Findings: No acute fracture or malalignment. No significant degenerative changes. Soft tissues unremarkable. Impression: No acute fracture or malalignment. Reviewed, dictated and finalized at location P. Impression: No acute fracture or malalignment.
--- NOTE | ~2025-09-09 | XR_ITS ---
EXAMINATION: XR elbow RT min 3V, 09/09/2025 12:37 CDT HISTORY: pain and bruising post fall today, leslie fell on arm this am COMPARISON: No comparisons available. Findings: No acute fracture or malalignment. No significant degenerative changes. Soft tissues unremarkable. Impression: No acute fracture or malalignment. Reviewed, dictated and finalized at location P. Impression: No acute fracture or malalignment.
--- NOTE | 2025-09-09 12:09 | ED.UPPEXIN ---
HPI - Extremity Injury (Upper) General Chief Complaint: Extremity Injury, Upper Stated Complaint: R HAND/R ARM INJURY Time Seen by Provider: 09/09/25 12:28 Source: patient, RN notes reviewed and old records reviewed Mode of arrival: ambulatory Limitations: no limitations History of Present Illness HPI narrative: 49-year-old female presents to the [facility] with complaints of right hand pain and right elbow pain. Patient states that she was at work pulling a leslie when she fell. Bruising noted to the posterior distal elbow and dorsal hand. Has full range of motion of the hand and elbow. Tenderness to the elbow is noted. Capillary refill, mild swelling noted to the fingers 3 and 4 No treatment prior to arrival Denies hitting head. No loss of consciousness. Denies neck or back pain Onset (ago): hour(s) (2) Related Data Home Medications ?Medication ?Instructions ?Recorded ?Confirmed ?Last Taken ?Type norelgestromin 150 mcg-e.estradiol 1 patch transdermal WEEKLY 10/23/24 09/09/25 Unknown History 35 mcg/24 hr weekly transderm patch (Zafemy) Allergies Allergy/AdvReac Type Severity Reaction Status Date / Time No Known Allergies Allergy Verified 09/09/25 12:17 Review of Systems Review of Systems: All systems reviewed & are unremarkable except as noted in HPI and below Constitutional: Constitutional: Reports no additional constitutional complaints Cardiovascular: Cardiovascular: Reports no additional cardiovascular complaints, Denies chest pain and Denies dyspnea Respiratory: Respiratory: Reports no additional respiratory complaints, Denies chest congestion, Denies cough and Denies dyspnea Musculoskeletal: Musculoskeletal: Reports as per HPI, Denies abnormal gait, Denies back pain, Denies myalgias, Reports arthralgias and Denies neck pain Integumentary/Breasts: Skin/Breast: Reports as per HPI and Reports skin swelling Neurologic: Reports system reviewed and no additional complaints, except as documented PMFSH Past Medical History Medical History 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 HTN (hypertension) with goal to be determined Hypothyroidism Family History Family History Mother Family history of thyroid disease Family history of malignant neoplasm of thyroid Grandparent Family history of thyroid disease Diabetes mellitus Family history of mental disorder Family history of lung disease Social History Social History Smoking status: Never smoker Second hand tobacco smoke exposure: No Alcohol intake: never Substance use: never Do You Feel Safe in your Home?: Yes Lack of Transportation: No Lack of Food: Never True Current Housing: Decline to Answer Concerned About Future Housing: No Difficulty Paying Gas/Electric Bills: No Difficulty Paying for Meds: No Currently Unemployed: No Education: Associate Degree Difficulty w/ Childcare or Family Care: No Gender identity (if verbalized by the patient): Female Spiritual care concerns: No Comments At the time of my signature, I reviewed and agree with the nursing past medical, surgical, social, and family history. There is no relevant family history pertinent to the patient complaint. Exam Const: General: cooperative, healthy appearing, comfortable, no acute distress, well developed, alert and well nourished Nutritional Appearance: well nourished Orientation/consciousness: patient oriented x3 Limitations: no limitations HENMT: Head: normal to inspection Eyes: General: appearance normal, both eyes and all related structures Alignment and Position: alignment normal Neck: Neck: normal visual inspection, full ROM, no lymphadenopathy and no meningeal signs Chest: Chest palpation & inspection: normal inspection of the chest Resp: Effort & Inspection: normal respiratory effort and able to speak in complete sentences Cardio: Rate: regular rate Back/Spine/Pelvis: Back: No back tenderness Skin: General skin exam: normal color and no rashes or lesions noted Neuro: General: patient oriented x3, gait normal, moves all extremities and no meningeal signs Cognition (Neuro): normal cognition Speech: normal speech Gait exam (Neuro): Normal gait present Extrem: General: normal to inspection, full ROM, capillary refill normal and normal gait Right upper extremity: shoulder/upper arm normal to inspection and normal ROM; no tenderness and no swelling, elbow/forearm tenderness, swelling of the proximal forearm (Posterior), normal ROM and ecchymosis, wrist normal to inspection and normal ROM; no tenderness and no swelling and Extremity exam: right hand neuromotor exam normal wrist extension normal, thumb opposition normal, thumb IP flexion normal, thumb ADduction normal and fingers 2-5 ABduction normal, tenderness, vascular exam radial pulse present and normal capillary refill, normal ROM of fingers, swelling of the 3rd digit at the proximal phalanx and of the 4th digit at the proximal phalanx and ecchymosis of the 3rd digit at the proximal phalanx and of the 4th digit at the proximal phalanx Psych: Appearance: grossly normal and well kempt Mental Status: mental status grossly normal Speech and movement: Normal speech and movement present and Clear speech present Affect: normal affect Attitude: cooperative Course Course Level of Care: Express Care Visit Vital Signs Vital signs: Vital Signs Temperature 98 F 09/09/25 12:17 Pulse Rate 87 09/09/25 12:17 Respiratory Rate 16 09/09/25 12:17 Blood Pressure 141/69 H 09/09/25 12:17 Pulse Oximetry 100 09/09/25 12:17 Temperature 98 F 09/09/25 12:17 Pulse Rate 87 09/09/25 12:17 Respiratory Rate 16 09/09/25 12:17 Blood Pressure 141/69 H 09/09/25 12:17 Pulse Oximetry 100 09/09/25 12:17 Reviewed MDM - Extremity Injury (Upper) MDM Narrative Medical decision making narrative: Patient sitting comfortably in exam room. Patient is nontoxic, vitals are stable. Patient presents for falling at work. Tenderness, swelling and bruising noted to the of right elbow and right hand. X-ray showed no acute findings. Patient is appropriate for outpatient treatment with close follow-up. Discharge instructions reviewed with patient, as well as provided in writing per nursing staff. The instructions also include specific and strict return/GO TO THE ER as well as f/u information. All questions have been answered, and the patient deny any further questions with discharge and discharge plan. Some parts of this dictation were generated by voice recognition software and may contain typographical and/or grammatical inaccuracies. Differential Diagnosis Differential diagnosis: Likely fracture of hand and other (Fracture, contusion) Imaging Data Radiologist's impression: EXAMINATION: XR elbow RT min 3V, 09/09/2025 12:37 CDT HISTORY: pain and bruising post fall today, leslie fell on arm this am COMPARISON: No comparisons available. Findings: No acute fracture or malalignment. No significant degenerative changes. Soft tissues unremarkable. Impression: No acute fracture or malalignment. EXAMINATION: XR hand RT min 3V, 09/09/2025 12:37 CDT HISTORY: pain and swelling fall today COMPARISON: No comparisons available. Findings: No acute fracture or malalignment. No significant degenerative changes. Soft tissues unremarkable. Impression: No acute fracture or malalignment. Critical Care Time Critical Care Time Critical Care Time: No Discharge Plan Discharge Clinical Impression: Contusion of hand, right Qualifiers: Encounter type: initial encounter Qualified Code(s): S60.221A - Contusion of right hand, initial encounter Contusion of elbow, right Qualifiers: Encounter type: initial encounter Qualified Code(s): S50.01XA - Contusion of right elbow, initial encounter Fall Qualifiers: Encounter type: initial encounter Qualified Code(s): W19.XXXA - Unspecified fall, initial encounter Patient Disposition: Home Condition: Stable Instructions: Antibiotic Form, Contusion in Adults (ED) Additional Instructions: Your Xrays did not show a fracture. Ice should be applied to help reduce swelling. It can be used for 20 to 30 minutes, every 2-3 hours while awake. Do not apply ice directly to your skin. Wearing an Tc wrap or an elbow brace can help with the discomfort in the swelling of the elbow. Contusions and soreness can last 2 weeks. Usually the worst the 1st week You can alternate ibuprofen 600mg and Tylenol 650mg every 4 hours as needed for pain Please schedule a follow-up visit with your personal physician for further evaluation and treatment within 2 weeks especially if symptoms persist. For new or worsening symptoms go directly to the emergency room Patient Language: Ghanaian Prescriptions: No Action norelgestromin-ethin.estradiol [Zafemy] 150-35 mcg/24 hr patch weekly 1 patch transdermal WEEKLY Rx Instructions: apply once weekly for 3 weeks of a 4-week cycle lisinopril 20 mg tablet See Rx Instructions .ROUTE .COMPLEX Qty: 180 1RF Dose Instruction: Take 1 tablet by mouth twice daily Rx Instructions: Take 1 tablet by mouth twice daily Prolia 60 mg/mL syringe 60 mg subcut [id number] Qty: 1 0RF levothyroxine 137 mcg tablet See Rx Instructions .ROUTE .COMPLEX Qty: 90 1RF Dose Instruction: Take 1 tablet by mouth once daily Rx Instructions: Take 1 tablet by mouth 6 days a week, skip Sundays verapamil 120 mg tablet extended release See Rx Instructions .ROUTE .COMPLEX Qty: 90 0RF Dose Instruction: Take 1 tablet by mouth once daily Rx Instructions: Take 1 tablet by mouth once daily Follow-up/Referrals: Alexis Tinoco MD [Primary Care Provider, Family Practice] - 2 Weeks Clinical Impression: Fall; Contusion of elbow, right; Contusion of hand, right Stand Alone Forms: Work/School Release IP Time of Disposition: 13:08
[2025-09-09 12:17] VITALS: BP 141/69; PULSE 87; RESP 16; TEMP 36.6; O2SAT 100
== END 2025-09-09 13:17 | disposition home or self-care (01) ==
PROVIDERS: Emergency Provider Nurse Practitioner; PCP Family Medicine
DX: S60.221A Contusion of right hand, initial encounter (principal); S50.01XA Contusion of right elbow, initial encounter; I10 Essential (primary) hypertension; E03.9 Hypothyroidism, unspecified; W19.XXXA Unspecified fall, initial encounter; Y99.0 Civilian activity done for income or pay
CPT/HCPCS: 73080; 73130; 99214; G0463

== ENCOUNTER 2025-10-27 12:30 | Emergency (ER) | payer OTHER, SELFPAY ==
--- NOTE | ~2025-10-27 | XR_ITS ---
EXAMINATION: XR shoulder RT min 2V DATE: 10/27/2025 12:54 INDICATION: Right shoulder pain post fall TECHNIQUE: AP internally and externally rotated, AP oblique externally rotated and transscapular Y views of the right shoulder were obtained. COMPARISON: None FINDINGS: Normal alignment. No acute fracture at the right shoulder. There is anterior wedging of a few mid thoracic vertebral bodies consistent with age-indeterminate compression fractures. There are also appear to be a couple old right-sided rib fractures. Mild glenohumeral and moderate acromioclavicular osteoarthritis. Moderate to severe thoracic spondylosis. Visualized portion of the lungs are clear. Surgical clips the left base of the neck suggesting prior left thyroidectomy. Soft tissues are otherwise unremarkable. IMPRESSION: Mild right glenohumeral and moderate chronic clavicular osteoarthritis. No acute osseous abnormality at the right shoulder. Reviewed, dictated and finalized at location A. TECHNICIAN IMPRESSION: Mild right glenohumeral and moderate chronic clavicular osteoarthritis. No acut e osseous abnormality at the right shoulder.
--- NOTE | 2025-10-27 12:38 | ED_ITS ---
HPI - Extremity Injury (Upper) General Chief Complaint: Extremity Injury, Upper Stated Complaint: R SHOULDER INJURY Time Seen by Provider: 10/27/25 12:31 Source: patient Mode of arrival: ambulatory Limitations: no limitations History of Present Illness HPI narrative: Clarisse is a 50-year-old female patient presenting to the clinic today complaints of right posterior shoulder pain after falling on the ice yesterday in the parking lot at work. States she fell back and landed on the right shoulder. Is having pain to the posterior shoulder with movement-range of motion/lifting arm up. Took some ibuprofen yesterday but has not taken anything today for pain. Rates her pain currently 2/10 with movement. Related Data Allergies Allergy/AdvReac Type Severity Reaction Status Date / Time No Known Allergies Allergy Verified 10/27/25 12:37 Review of Systems Review of Systems: Pertinent positives per HPI. Patient denies any fever, chills, rash, headache, visual changes, dizziness, cough, runny nose, sore throat, shortness of breath, chest pain, palpitations, nausea, vomiting, diarrhea, constipation, abdominal pain, or any urinary issues. 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 HTN (hypertension) with goal to be determined Hypothyroidism Family History Family History Mother Family history of thyroid disease Family history of malignant neoplasm of thyroid Grandparent Family history of thyroid disease Diabetes mellitus Family history of mental disorder Family history of lung disease Social History Social History Smoking status: Never smoker Second hand tobacco smoke exposure: No Alcohol intake: never Substance use: never Lack of Transportation: No Lack of Food: Never True Current Housing: Decline to Answer Concerned About Future Housing: No Difficulty Paying Gas/Electric Bills: No Difficulty Paying for Meds: No Currently Unemployed: No Education: Associate Degree Difficulty w/ Childcare or Family Care: No Gender identity (if verbalized by the patient): Female Spiritual care concerns: No Comments At the time of my signature, I reviewed and agree with the nursing past medical, surgical, social, and family history. There is no relevant family history pertinent to the patient complaint. Exam Narrative: General: Well-developed, well nourished, in no apparent distress Head: Normocephalic, atraumatic. Cardio: Regular rate and rhythm, s1 and s2 normal, no murmur appreciated. Resp: Clear to auscultation bilaterally, no rhonchi, rales, wheezing or rubs. Musculoskeletal: No deformity, right posterior shoulder tenderness to palpation and range of motion to the posterior shoulder, no obvious bruising, swelling, or deformity grossly normal range of motion, muscle strength strong and equal, peripheral pulse strong, no edema, no cyanosis, normal gait and station Course Course Level of Care: Express Care Visit Vital Signs Vital signs: Vital Signs Temperature 36.5 C 10/27/25 12:41 Pulse Rate 97 10/27/25 12:41 Respiratory Rate 16 10/27/25 12:41 Blood Pressure 133/60 10/27/25 12:41 Pulse Oximetry 100 10/27/25 12:41 Temperature 36.5 C 10/27/25 12:41 Pulse Rate 97 10/27/25 12:41 Respiratory Rate 16 10/27/25 12:41 Blood Pressure 133/60 10/27/25 12:41 Pulse Oximetry 100 10/27/25 12:41 MDM MDM Narrative Medical decision making narrative: At the time of visit patient is resting comfortably on the exam table. Patient appears to be nontoxic. Complaints of right posterior shoulder pain after falling on the ice yesterday in the parking lot at work. States she fell back and landed on the right shoulder. Is having pain to the posterior shoulder with movement-range of motion/lifting arm up. Took some ibuprofen yesterday but has not taken anything today for pain. Rates her pain currently 2/10 with movement. On exam patient has right posterior shoulder tenderness to palpation and range of motion to the posterior shoulder, no obvious bruising, swelling, or deformity. X-ray of the right shoulder was ordered. Diagnostics: X-ray of the right shoulder is negative for any sign of fracture or malalignment. Does have some osteoarthritis of the glenohumeral and clavicular shoulder Plan: I suspect patient has a right posterior shoulder strain. Supportive measures were discussed with the patient and they voiced understanding discharge instructions and agrees to treatment plan. Return precautions reviewed Differential Diagnosis Differential Diagnosis: Shoulder sprain, shoulder strain, humerus fracture, clavicle fracture, contusion, soft tissue injury, rotator cuff injury Imaging Data Radiologist's impression: ITS Impressions Shoulder X-Ray 10/27/25 12:56 IMPRESSION: Mild right glenohumeral and moderate chronic clavicular osteoarthritis. No acute osseous abnormality at the right shoulder. Discharge Plan Discharge Clinical Impression: Right shoulder strain Qualifiers: Encounter type: initial encounter Qualified Code(s): S46.911A - Strain of unspecified muscle, fascia and tendon at shoulder and upper arm level, right arm, initial encounter Osteoarthritis of shoulder Qualifiers: Osteoarthritis type: unspecified Laterality: right Qualified Code(s): M19.011 - Primary osteoarthritis, right shoulder Patient Disposition: Home Condition: Stable Instructions: Antibiotic Form, Osteoarthritis (ED), Shoulder Sprain (ED) Additional Instructions: X-ray of the right shoulder is negative for any fracture or malalignment. Rest and ice for the next 24 hours May switch to heat after 24 hours Tylenol/motrin for pain as discussed. Follow up with your PCP if symptoms persist more than 1 week. Patient Language: Greek Prescriptions: No Action levothyroxine 137 mcg tablet See Rx Instructions .ROUTE .COMPLEX Qty: 90 1RF Dose Instruction: Take 1 tablet by mouth once daily Rx Instructions: Take 1 tablet by mouth 6 days a week, skip Sundays verapamil 120 mg tablet extended release See Rx Instructions .ROUTE .COMPLEX Qty: 90 0RF Dose Instruction: Take 1 tablet by mouth once daily Rx Instructions: Take 1 tablet by mouth once daily lisinopril 20 mg tablet See Rx Instructions .ROUTE .COMPLEX Qty: 180 1RF Dose Instruction: Take 1 tablet by mouth twice daily Rx Instructions: Take 1 tablet by mouth twice daily norelgestromin-ethin.estradiol [Zafemy] 150-35 mcg/24 hr patch weekly 1 patch transdermal WEEKLY Qty: 9 2RF Rx Instructions: apply once weekly for 3 weeks of a 4-week cycle Follow-up/Referrals: Alexis Tinoco MD [Primary Care Provider, [facility]] Time of Disposition: 13:10 Quality NIHSS Nursing Documentation ED NIHSS nursing documentation: reviewed/agree
[2025-10-27 12:41] VITALS: BP 133/60; PULSE 97; RESP 16; TEMP 36.5; O2SAT 100
== END 2025-10-27 13:13 | disposition home or self-care (01) ==
PROVIDERS: Emergency Provider Nurse Practitioner Family; PCP Family Medicine
DX: S46.911A Strain of unspecified muscle, fascia and tendon at shoulder and upper arm level, right arm, initial encounter (principal); W00.9XXA Unspecified fall due to ice and snow, initial encounter; M19.011 Primary osteoarthritis, right shoulder; I10 Essential (primary) hypertension; E03.9 Hypothyroidism, unspecified; I77.9 Disorder of arteries and arterioles, unspecified
CPT/HCPCS: 73030; 99213; G0463